=== PATIENT | female | born 1995 | race Caucasian/White ===

== ENCOUNTER 2017-05-20 14:17 | Emergency (ER) | payer MEDICAID ==
[~2017-05-20] VITALS: Wt 81.6 kg
[~2017-05-20 14:17] MED LIST: AMOXICILLI400 MG/5 M PO; AMOXIL250 MG/5 M PO; BIRTH CONTROL1 EAC1; CARAFATE1 G1 PO; MEDROL DOSEPAK4 MG PO; MOTRIN800 MG PO; PRILOSEC40 M1 PO; ULTRAM50 MG PO
[2017-05-20 14:48] LABS: BILIRUBIN 2+ (NEGATIVE); BLOOD 3+ (NEGATIVE); CLARITY CLOUDY (CLEAR); COLOR RED (YELLOW); GLUCOSE 1+ (NEGATIVE); KETONE 2+ (NEGATIVE); LEUKO ESTERASE 2+ (NEGATIVE); NITRITE POSITIVE (NEGATIVE); PH 6.5 (5.0-9.0); PROTEIN 3+ (NEGATIVE)
[2017-05-20 15:00] LABS: URINE REFLEX COMMENT YES (NO)
[2017-05-20 15:01] LABS: RBC TNTC rbc/hpf (0-2); WBC TNTC wbc/hpf (0-5)
[2017-05-20] MEDS ORDERED: MACROBID100 M1 PO (15:06)
== END 2017-05-20 15:10 | disposition home or self-care (01) ==
LOC: ED 14:17
PROVIDERS: Nurse Practitioner Family
DX: N39.0 Urinary tract infection, site not specified (principal); N93.9 Abnormal uterine and vaginal bleeding, unspecified; R31.9 Hematuria, unspecified; Z79.899 Other long term (current) drug therapy; Z32.02 Encounter for pregnancy test, result negative

== ENCOUNTER 2017-08-03 18:56 | Emergency (ER) | payer MEDICAID ==
[~2017-08-03] VITALS: Ht 162.5 cm; Wt 81.6 kg
[~2017-08-03 18:56] MED LIST changes: +MACROBID100 M1 PO
[2017-08-03] MEDS ORDERED: LIDEX 0.05% CRE15 GM T (19:15)
== END 2017-08-03 19:23 | disposition home or self-care (01) ==
LOC: ED 18:56
DX: S50.862A Insect bite (nonvenomous) of left forearm, initial encounter (principal); R03.0 Elevated blood-pressure reading, without diagnosis of hypertension; Z90.49 Acquired absence of other specified parts of digestive tract; W57.XXXA Bitten or stung by nonvenomous insect and other nonvenomous arthropods, initial encounter; Y93.89 Activity, other specified; Y92.89 Other specified places as the place of occurrence of the external cause; Y99.9 Unspecified external cause status

== ENCOUNTER 2019-07-27 16:43 | Emergency (ER) | payer SELFPAY ==
[~2019-07-27] VITALS: Ht 162.5 cm; Wt 81.6 kg
[~2019-07-27 16:43] MED LIST changes: +LIDEX 0.05% CRE15 GM T
[2019-07-27] MEDS ORDERED: LIDEX 0.05% CRE15 GM T (17:19)
[2019-07-27] MEDS ORDERED: AMOXICILLIN500 M2 PO (17:19)
[2019-07-27] MEDS ORDERED: MEDROL DOSEPAK4 MG PO (17:19)
== END 2019-07-27 17:26 | disposition home or self-care (01) ==
LOC: ED 16:43
DX: J02.9 Acute pharyngitis, unspecified (principal); L23.7 Allergic contact dermatitis due to plants, except food; Z79.899 Other long term (current) drug therapy; Z90.49 Acquired absence of other specified parts of digestive tract

== ENCOUNTER 2020-03-24 18:32 | Emergency (ER) | payer OTHER ==
[~2020-03-24] VITALS: Ht 165.1 cm; Wt 86.2 kg
[~2020-03-24 18:32] MED LIST changes: +AMOXICILLIN500 M2 PO
== END 2020-03-24 21:36 | disposition home or self-care (01) ==
LOC: ED 18:32
DX: S63.502A Unspecified sprain of left wrist, initial encounter (principal); S40.011A Contusion of right shoulder, initial encounter; J45.909 Unspecified asthma, uncomplicated; K21.9 Gastro-esophageal reflux disease without esophagitis; Z79.899 Other long term (current) drug therapy; W10.8XXA Fall (on) (from) other stairs and steps, initial encounter; Y93.89 Activity, other specified; Y92.89 Other specified places as the place of occurrence of the external cause; Y99.8 Other external cause status

== ENCOUNTER → 2021-03-01 | Outpatient (CLI) | payer OTHER | END | disposition home or self-care (01) | LOC: RAD 14:59 | PROVIDERS: ATTEND Nurse Practitioner Family | DX: M54.5 Low back pain (principal) ==

== ENCOUNTER 2021-06-11 07:48 | Emergency (ER) | payer OTHER ==
[~2021-06-11] VITALS: Ht 162.5 cm; Wt 95.3 kg
[2021-06-11 11:06] LABS: ALBUMIN 3.6 gm/dl (3.1-4.5); ALKALINE PHOSPHATASE 56 U/L (45-117); BUN 10 mg/dl (7-24); CHLORIDE 109 mmol/L (98-107); CREATININE 0.76 mg/dL (0.55-1.02); POTASSIUM 3.8 mmol/L (3.5-5.1); SGOT/AST 17 IU/L (3-35); SGPT/ALT 28 U/L (12-78); SODIUM 136 mmol/L (136-145); TOTAL PROTEIN 7.5 gm/dL (6.4-8.2)
[2021-06-11 11:10] LABS: BETA-HCG, QUANT < 1.0 mIU/mL (1-3)
== END 2021-06-11 11:20 | disposition home or self-care (01) ==
LOC: ED 07:48
PROVIDERS: Student in an Organized Health Care Education/Training Program
DX: R53.83 Other fatigue (principal); Z79.2 Long term (current) use of antibiotics; Z79.899 Other long term (current) drug therapy; Z90.49 Acquired absence of other specified parts of digestive tract

== ENCOUNTER 2023-05-24 21:42 | Emergency (ER) | payer OTHER ==
[~2023-05-24] VITALS: Ht 165.1 cm; Wt 97.5 kg
== END 2023-05-24 23:01 | disposition home or self-care (01) ==
LOC: ED 21:42
DX: M77.8 Other enthesopathies, not elsewhere classified (principal); M25.521 Pain in right elbow; E66.9 Obesity, unspecified; Z79.2 Long term (current) use of antibiotics; Z79.899 Other long term (current) drug therapy; Z90.49 Acquired absence of other specified parts of digestive tract; Z68.30 Body mass index [BMI] 30.0-30.9, adult

== ENCOUNTER 2023-08-09 19:17 | Emergency (ER) | payer OTHER ==
[~2023-08-09] VITALS: Ht 162.5 cm; Wt 99.8 kg
== END 2023-08-09 21:25 | disposition home or self-care (01) ==
LOC: ED 19:17
DX: S60.221A Contusion of right hand, initial encounter (principal); J45.909 Unspecified asthma, uncomplicated; K21.9 Gastro-esophageal reflux disease without esophagitis; Z90.49 Acquired absence of other specified parts of digestive tract; W22.8XXA Striking against or struck by other objects, initial encounter; Y93.89 Activity, other specified; Y92.89 Other specified places as the place of occurrence of the external cause; Y99.8 Other external cause status

== ENCOUNTER → 2024-03-12 | Outpatient (CLI) | payer OTHER | END | disposition home or self-care (01) | LOC: RAD 15:45 | PROVIDERS: ATTEND Nurse Practitioner | DX: R91.8 Other nonspecific abnormal finding of lung field (principal) ==

== ENCOUNTER 2024-05-02 21:58 | Emergency (ER) | payer OTHER ==
[2024-05-02] MEDS ORDERED: Dexamethasone Sodium Phospha 20 MG/5 ML VIAL IM ONE (22:40)
[2024-05-03] MEDS ORDERED: PREDNISONE50 MG PO (00:06)
[2024-05-03] MEDS ORDERED: CYCLOBENZAPRINE5 M3 PO (00:06)
== END 2024-05-03 01:23 | disposition home or self-care (01) ==
LOC: ED 21:58
DX: M94.0 Chondrocostal junction syndrome [Tietze] (principal); J45.909 Unspecified asthma, uncomplicated; K21.9 Gastro-esophageal reflux disease without esophagitis; Z90.49 Acquired absence of other specified parts of digestive tract

== ENCOUNTER → 2024-08-25 | Outpatient (CLI) | payer OTHER ==
[~2024-08-25] MED LIST changes: +Albuterol Sulfate 2.5 MG/3 ML VIAL NEB ONE; +CYCLOBENZAPRINE5 M3 PO; +PREDNISONE50 MG PO
== END | disposition home or self-care (01) ==
LOC: CP 09:30
PROVIDERS: ATTEND Nurse Practitioner
DX: R06.02 Shortness of breath (principal); R93.89 Abnormal findings on diagnostic imaging of other specified body structures